=== PATIENT | male | born 1995 | race Caucasian/White ===

== ENCOUNTER 2023-12-30 16:35 | Emergency (ER) | payer SELFPAY ==
[2023-12-30 16:39] VITALS: BP 138/95
--- NOTE | 2023-12-30 17:48 | ED.GENMED ---
History of Present Illness
General
Chief Complaint: Musculo-Skeletal Complaint
Source: patient
Exam Limitations: none
Time Seen by Provider: 12/30/23 17:20
Nursing documentation reviewed up to this point in time: agreed with
History of Present Illness
History of Present Illness:
28 y/o M with no sig pmh
here with L knee pain 5 days ago when he stepped down onto the ground with left foot and felt pop in the bakc of his knee
it is not swollen but it is painful mostly with flexion
he is able to fully flex it
he was able to work the following day and yesterday but it does hurt after soem time
bought a softknee brace with a patellar opening that has helped but it is still hurting
nothing taken for pain
no swelling, nmbness, tingling, weakness
Past History
Past History
ED Past Medical History: None
ED Past Surgical History: None
Social History
Tobacco: Non-smoker
Review of Systems
Review of Systems
Allergies reviewed?: Yes
All Other Systems: Not applicable
Phy Exam
Physical Exam
Physical Exam:
GENERAL: Alert , in no apparent distress, comfortable at rest
HEAD: NCAT
CV: 2+ DP PULSES B/L
NEUROLOGICAL: Alert and oriented, no focal neuro deficits, , 5/5 strength, sensation intact, ambulation slight limp left leg
SKIN: Warm and dry, no bruising
MUSCULOSKELETAL: left knee normal inspection, no swelling, no effusion
stable ligaments
normal straight leg raise
neg ant/psot drawer
no pain with varus and valgus
omst pain with flexion to 45 degres
ankle and hip normal
PSYCH: Normal and appropriate interaction.
Course
Orders/Labs/Results
Orders:
Orders
12/30/23 16:39
Knee, Left 4 or More Views [CR Knee - Left 4 Or More View*] Urgent
Comment:
Reason For Exam: pain/swelling
Vital Signs
Initial and Last Documented VS:
Initial Vital Signs
Temp Pulse Resp BP Pulse Ox
98.8 F 77 17 138/95 99
12/30/23 16:39 12/30/23 16:39 12/30/23 16:39 12/30/23 16:39 12/30/23 16:39
Last Documented Vital Signs
Temp Pulse Resp BP Pulse Ox
98.8 F 77 17 138/95 99
12/30/23 16:39 12/30/23 16:39 12/30/23 16:39 12/30/23 16:39 12/30/23 16:39
MDM/Problems Addressed
Differential Diagnosis Includes:
knee contusion, knee sprain, meniscus tear
MDM/Problems Addressed:
28 y/o M
felt pain in L knee when he stepped last week
denies rotational injury
pain is posterior
no swelling
able to walk but with some pain
ableto flex
normal straight leg raise and stable ligaments
xrays indep reviewed, neg.
*Critical Care Note
Total Time (30-74mins, 75-104mins- exclusive of procedures): Not Applicable
ED Attending Note
-
Portions of this chart may have been created with voice recognition software.� Occasional wrong word or��sound alike� substitutions may have occurred due to the inherent limitations of voice recognition software.
Discharge Plan
Departure
Patient Disposition: Home (Routine Discharge)
Date of Disposition: 12/30/23
Time of Disposition: 17:56
Patient with high blood pressure during this ER visit?: No
Condition: Fair
Covid-19: Not Applicable
Discharge Problem:
Left knee sprain
Instructions: Knee Sprain (DC)
Referrals:
[facility] - Follow up in 1 week (freeclinic)
NONE,* [Family Provider] -
Arsenio Nielsen MD [Active] - Follow up in 5-7 days (ortho)
Activity Restrictions/Additional Instructions:
Wear the knee immobilizer while awake, you can take it off at night. You can ice off-and-on. You should try ibuprofen 600 mg with food 3 times a day for 3 to 5 days for inflammation and see if this helps. If it is still painful you should
follow-up with orthopedics. He may need to see that free clinic first. Return for leg swelling, inability to walk, fever or chills or any concerns
Interventions
Interventions:
*Risk Screen - Suicide Last Done: 12/30/23 17:43
*General Assessment Last Done: 12/30/23 17:43
*Neglect/Abuse Screening Last Done: 12/30/23 17:43
ED- Fall Risk Assessment Last Done: 12/30/23 18:07
*ED COVID-19 Vaccine History Last Done: 12/30/23 17:43
*Nursing Disposition Last Done: 12/30/23 18:07
ED-Musculoskeletal Assessment Last Done: 12/30/23 17:48
Discharge Date and Time
Discharge Date/Time: 12/30/23 18:17
Print Language: INDONESIAN
== END 2023-12-30 18:17 | disposition home or self-care (01) ==
LOC: EMR 16:35
PROVIDERS: EMERGENCY PHYSICIAN Emergency Medicine
DX: S83.92XA Sprain of unspecified site of left knee, initial encounter (principal); X58.XXXA Exposure to other specified factors, initial encounter
CPT/HCPCS: 99283; 73564

== ENCOUNTER 2024-10-08 15:23 | Emergency (ER) | payer SELFPAY ==
[2024-10-08 15:25] VITALS: BP 131/81
--- NOTE | 2024-10-08 15:44 | ED.GENMED ---
History of Present Illness
General
Chief Complaint: Abdominal Pain
Source: patient
Time Seen by Provider: 10/08/24 15:29
History of Present Illness
History of Present Illness:
29-year-old male presents to the emergency room complaining of left-sided abdominal pain as well as bloody stool. Patient began experiencing the symptoms about to go. It began with abdominal pain as well as nausea vomiting. He has been passing a
small amount of stool associated with maroon to red blood. He states when he goes the bathroom very little stool comes out its mostly the blood. He states that he has 'stomach problems' and believes he was diagnosed with irritable bowel syndrome
as a teenager. Patient does have some loose stool from time to time. He denies any weight loss. He denies any fever or chills.
Past History
Past History
ED Past Medical History: None
ED Past Surgical History: None
Social History
Tobacco: Non-smoker
Phy Exam
Physical Exam
Physical Exam:
General: Awake, Alert, Oriented X3. No acute distress.
Vitals: unremarkable
Head: Atraumatic
Eyes: Pupils equal, EOMI
Throat: Airway intact, no exudates
Neck: Trachea midline
Lungs: Clear and equal b/l
Heart: Regular rate, no murmurs
Abd: Soft, mild tenderness left lower quadrant, No pulsatile mass
Neuro: Nonfocal
Skin: Warm, dry, no rash
Extremities: pulses equal b/l, no edema
Course
Orders/Labs/Results
Orders:
Orders
10/08/24 15:38
0.9% Sodium Chloride 1000 ml [Nss] 1,000 ml IV BOLUS
Iohexol [Omnipaque] See Protocol PO NOW STA
Ketorolac [Toradol] 15 mg IV NOW STA
10/08/24 15:39
CT Abd/pel W Iv And Oral Contr Urgent
Comment:
Reason For Exam: L abd pain, bloody stool
10/08/24 15:45
C DIFF [C difficile Antigen & Toxins] Urgent
[facility] Source: Feces/Stool
Specimen Description:
Stool Culture Urgent
[facility] Source: Feces/Stool
Specimen Description:
10/08/24 16:13
Comprehensive Metabolic Panel Urgent
10/08/24 16:14
Complete Blood Count/With Diff Urgent
10/08/24 18:17
Urinalysis Reflex To Culture Urgent
Date Specimen was Collected: 10/08/24
Time Specimen was Collected: 17:51
Abnormal Lab Results
10/08/24
16:14
RBC 4.08 L 10^6/uL
(4.70-6.10)
Hgb 12.9 L g/dL
(13.0-18.0)
Hct 38.2 L %
(39.0-52.0)
MCH 31.6 H pg
(27.0-31.0)
MPV 11.6 H fL
(7.4-10.4)
Absolute Monos (auto) 0.7 H 10^3/uL
(0.1-0.6)
10/08/24 16:14
10/08/24 16:13
Vital Signs
Initial and Last Documented VS:
Initial Vital Signs
Temp Pulse Resp BP Pulse Ox
97.7 F 90 20 131/81 99
10/08/24 15:25 10/08/24 15:25 10/08/24 15:25 10/08/24 15:25 10/08/24 15:25
Last Documented Vital Signs
Temp Pulse Resp BP Pulse Ox
98.4 F 61 21 129/84 98
10/08/24 16:04 10/08/24 20:00 10/08/24 19:15 10/08/24 20:00 10/08/24 20:00
MDM/Problems Addressed
Differential Diagnosis Includes:
Ulcerative colitis, Crohn's, infectious diarrhea, internal hemorrhoids
MDM/Problems Addressed:
Patient presents with abdominal discomfort and bloody stool. Labs show a very mild anemia with a hemoglobin of 12.9. Remainder of his labs are unremarkable. CT does not show any acute abnormality. Recommend follow-up with GI and his primary care
provider. Patient for me does not have a primary care provider so we gave him contact [facility]. I sent a message to the clinic scheduling role
*Radiology
Radiology exam reviewed: radiology read reviewed
*Pulse Oximetry
Patient hypoxic: no
*Critical Care Note
Total Time (30-74mins, 75-104mins- exclusive of procedures): Not Applicable
Patient Management
Social determinants of health affecting care: Poor outpatient follow-up
ED Attending Note
-
Portions of this chart may have been created with voice recognition software.� Occasional wrong word or��sound alike� substitutions may have occurred due to the inherent limitations of voice recognition software.
Discharge Plan
Departure
Patient Disposition: Home (Routine Discharge)
Date of Disposition: 10/08/24
Time of Disposition: 20:33
Patient with high blood pressure during this ER visit?: No
Condition: Good
Discharge Problem:
Abdominal pain, Hematochezia
Instructions: Diarrhea in teens and adults, Bloody Stools, Adult ED, Low-fiber diet
Referrals:
[facility] [Outside]
NONE,* [Family Provider] -
Rachel Carter MD [Active] -
Interventions
Interventions:
*General Assessment Last Done: 10/08/24 15:25
*Neglect/Abuse Screening Last Done: 10/08/24 16:04
*ED- Fall Risk Assessment Last Done: 10/08/24 16:04
*ED COVID-19 Vaccine History Last Done: 10/08/24 16:04
UJ-Vndfzu-Gnbawnsqja Assessment Last Done: 10/08/24 16:04
Discharge Date and Time
Print Language: [place]
[2024-10-08 16:04] VITALS: BP 134/83
[2024-10-08 16:05] VITALS: BMI 22.3
[2024-10-08] MEDS: TORADOL 15 MG IV (16:16)
[2024-10-08] MEDS: NSS 1000 IV (16:16)
[2024-10-08] MEDS: OMNIPAQUE 50 ML PO (16:16)
[2024-10-08 16:27] LABS: % Basophils 0.5 % (0-2); % Eosinophils 2.1 % (0-6); % Immature Granulocytes 0.2 % (0-0.5); % Lymphocytes 34.7 % (20.5-51.1); % Monocytes 7.9 % (1.7-9.3); % Neutrophils 54.6 % (42.2-75.2); Absolute Eosinophils 0.2 10^3/uL (0-0.7); Absolute Monocytes 0.7 10^3/uL (0.1-0.6); Absolute Neutrophils 4.8 10^3/uL (1.4-6.5); Hematocrit 38.2 % (39.0-52.0); Hemoglobin 12.9 g/dL (13.0-18.0); Mean Corp Hgb Conc. 33.8 g/dL (33.0-37.0); Mean Corpuscular Hgb 31.6 pg (27.0-31.0); Mean Corpuscular Volume 93.6 fL (80.0-94.0); Mean Platelet Volume 11.6 fL (7.4-10.4); Nucleated Red Blood Cells % 0 % (-); Platelet Count 152 10^3/uL (130-400); Red Blood Cell Count 4.08 10^6/uL (4.70-6.10); Red Cell Dist. Width 13.2 % (11.5-14.5); White Blood Cell Count 8.7 10^3/uL (4.8-10.8)
[2024-10-08 16:35] LABS: ALT (SGPT) 28 U/L (0-50); AST (SGOT) 26 U/L (17-59); Albumin 4.5 g/dl (3.5-5.0); Alkaline Phosphatase 44 U/L (38-126); Blood Urea Nitrogen 10 mg/dl (9-20); Calcium 9.3 mg/dl (8.4-10.2); Carbon Dioxide 29 mmol/L (22-30); Chloride 106 mmol/L (98-107); Estimated Creatinine Clearance > 125 ml/min; Glucose 88 mg/dl (70-99); Potassium 3.9 mmol/L (3.5-5.1); Sodium 139 mmol/L (135-145); Total Bilirubin 0.7 mg/dl (0.2-1.3); eGFR > 60.00
[2024-10-08 17:00] VITALS: BP 149/84
[2024-10-08 18:00] VITALS: BP 142/82
[2024-10-08 18:39] LABS: Urine Albumin Negative (Neg - Trace); Urine Bilirubin Negative (Negative); Urine Character Clear (Clear); Urine Color Yellow; Urine Glucose Negative (Negative); Urine Ketone Negative (Negative); Urine Leukocyte Negative (Negative); Urine Nitrite Negative (Negative); Urine Occult Blood Negative (Negative); Urine Urobilinogen Negative (Neg - 1+)
[2024-10-08 19:15] VITALS: BP 135/77
[2024-10-08 20:00] VITALS: BP 129/84
--- NOTE | 2024-10-08 21:00 | EDRN ---
Stool specimen. Patient could not provide a stool specimen in ED.
== END 2024-10-08 21:03 | disposition home or self-care (01) ==
LOC: EMR 15:23
PROVIDERS: EMERGENCY PHYSICIAN Emergency Medicine
DX: K92.1 Melena (principal); R10.9 Unspecified abdominal pain; D64.9 Anemia, unspecified
CPT/HCPCS: 99285; 96374; 96361; 74177; 80053; 81003; 85025; Q9967